=== PATIENT | male | born 1950 | race Caucasian/White ===

== ENCOUNTER → 2017-12-04 | Outpatient (CLI) | payer MEDICARE, OTHER | LOC: M.INFUS 19:40 → M.ERS 19:40 → M.INFUS 20:00 | DX: L08.9 Local infection of the skin and subcutaneous tissue, unspecified (principal) ==

== ENCOUNTER → 2017-12-05 | Outpatient (CLI) | payer MEDICARE, OTHER | LOC: M.INFUS 08:00 | DX: R78.81 Bacteremia (principal); T81.4XXD Infection following a procedure, subsequent encounter; Z79.2 Long term (current) use of antibiotics ==

== ENCOUNTER → 2017-12-05 | Outpatient (CLI) | payer MEDICARE, OTHER | LOC: M.INFUS 19:25 | DX: R78.81 Bacteremia (principal); T81.4XXD Infection following a procedure, subsequent encounter; Z79.2 Long term (current) use of antibiotics ==

== ENCOUNTER → 2017-12-06 | Outpatient (CLI) | payer MEDICARE, OTHER | LOC: M.INFUS 06:21 | DX: R78.81 Bacteremia (principal); T81.4XXD Infection following a procedure, subsequent encounter; Z79.2 Long term (current) use of antibiotics ==